=== PATIENT | male | born 1975 | race Caucasian/White ===

== ENCOUNTER 2016-04-20 19:06 | Emergency (ER) | payer OTHER ==
[~2016-04-20] VITALS: Ht 180.3 cm; Wt 90.7 kg
--- NOTE | 2016-04-20 19:24 | ED CARDIAC/CP/PALPITATIONS ---
History of Present Illness General Chief Complaint: General Adult Stated Complaint: PT WAS SENT BY WALK IN FOR CHEST PAIN Source: patient, family Exam Limitations: no limitations Vital Signs & Intake/Output Vital Signs & Intake/Output Vital Signs Date Time Temp Pulse Resp B/P Pulse O2 O2 Flow FiO2 Ox Delivery Rate 04/20 2114 98.8 50 21 103/58 94 Room Air 04/20 1920 98.3 67 20 117/78 95 Room Air Allergies Coded Allergies: NO KNOWN ALLERGIES (04/20/16) Reconcile Medications Indomethacin 25 MG CAPSULE 1 CAP PO TID PRN PAIN with food Triage Nurses Notes Reviewed? yes Onset: Abrupt Duration: SINCE 5 AM Timing: single episode today Quality/Severity: sharp Modifying Factors: Worsens With: breathing, movement. HPI: 40 year old male who presents to the ER with chief complaint of left sided chest pain who presents to the ER with left sided chest pain which started at 5 am this morning, waking him up from sleep. He denies any shortness of breath. Pain is in the left chest worse with certain movements and deep inspiration. He states he took 2 doses of ibuprofen today with no relief. This evening he went to an urgent care center and they sent in for further evaluation. He has a family history of cardiac disease. His father of an [place] at the age of 56. Past History Travel History Traveled to [place] past 21 day No Medical History Any Pertinent Medical History? see below for history Neurological: NONE EENT: OPTIC NEURITIS Cardiovascular: NONE Respiratory: NONE Gastrointestinal: NONE Hepatic: NONE Renal: NONE Musculoskeletal: NONE Psychiatric: NONE Endocrine: NONE Blood Disorders: NONE Cancer(s): NONE BATCH DUMPER/Reproductive: NONE Surgical History Surgical History: non-contributory Psychosocial History What is your primary language Peruvian Tobacco Use: Current Daily Use Daily Tobacco Use Amount/Type: => 5 Cigarettes daily ETOH Use: occasional use Illicit Drug Use: ON SUBOXONE Family History Comment: FATHER - OF [place] @ 54 BROTHER - DVT Hx Contributory? Yes Review of Systems Review of Systems Constitutional: Denies: chills, fever. EENTM: Reports: no symptoms. Respiratory: Denies: cough, short of breath, sputum production. Cardiovascular: Reports: chest pain. GI: Denies: abdominal pain. Genitourinary: Reports: no symptoms. Musculoskeletal: Reports: no symptoms. Skin: Reports: no symptoms. Neurological/Psychological: Reports: no symptoms. Hematologic/Endocrine: Denies: bruising, bleeding, polyuria, polydipsia. Immunologic/Allergic: Denies: splenectomy. All Other Systems: Reviewed and Negative Physical Exam Physical Exam General Appearance: well developed/nourished, alert, awake, mild distress Head: atraumatic, normal appearance Eyes: Bilateral: normal appearance, PERRL, pale conjunctivae. Ears, Nose, Throat: normal pharynx, normal ENT inspection, hearing grossly normal Neck: normal inspection, supple, full range of motion Respiratory: normal breath sounds, chest non-tender, no respiratory distress Cardiovascular: regular rate/rhythm Peripheral Pulses: 2+ radial (R), 2+ radial (L) Gastrointestinal: normal bowel sounds, soft, non-tender Neurologic/Psych: no motor/sensory deficits, awake, alert, oriented x 3 Skin: intact, normal color, warm/dry Core Measures ACS in differential dx? Yes ASA ordered for poss ACS? 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 04/20 1943 Active LIPID PANEL 04/20 1942 Complete D-DIMER 04/20 1942 Complete TROPONIN LEVEL 04/20 1913 Complete COMPREHENSIVE METABOLIC PANEL 04/20 1913 Complete CBC WITHOUT DIFFERENTIAL 04/20 1913 Complete EKG 04/20 1913 Active Laboratory Tests 04/20/161942: Anion Gap 8, Estimated GFR > 60, BUN/Creatinine Ratio 19.0, Glucose 94, Calcium 9.5, Total Bilirubin 0.8, AST 18, ALT 30, Alkaline Phosphatase 54, Troponin I < 0.01, Total Protein 6.7, Albumin 4.3, Globulin 2.4, Albumin/Globulin Ratio 1.8, Triglycerides 122, Cholesterol 215 H, LDL Cholesterol, Calc 142 H, HDL Cholesterol 49, Cholesterol/HDL Ratio 4, D-Dimer < 200, CBC w Diff NO MAN DIFF REQ, RBC 4.46 L, MCV 93.1, MCH 33.2 H, RDW 12.9, MPV 7.9, Gran % 68.2, Lymphocytes % 18.6 L, Monocytes % 6.6, Eosinophils % 6.2 H, Basophils % 0.4, Absolute Granulocytes 4.8, Absolute Lymphocytes 1.3, Absolute Monocytes 0.5, Absolute Eosinophils 0.4, Absolute Basophils 0, PUBS MCHC 35.7 Diagnostic Imaging: Viewed by Me: Radiology Read. Discussed w/RAD: Radiology Read. CXR Impression: chest x-ray within normal limits from urgent care Initial ED EKG: NSR Departure Departure Time of Disposition: 2130 Disposition: HOME OR SELF CARE Condition: Stable Clinical Impression Primary Impression: Chest pain at rest Referrals: LAUREN LOPEZ PhD,ANTONELLA Combs Additional Instructions: Follow-up with Dr. Hernández in the office. Stop smoking as we advised. Take Indocin as directed. Return to the ER for any changing or worsening symptoms. Departure Forms: Customer Survey General Discharge Information Prescriptions: Current Visit Scripts Indomethacin 1 CAP PO TID PRN PAIN #30 CAP with food Critical Care Note Critical Care Note Critical Care Time: non-applicable
[2016-04-20 20:18] LABS: ABSOLUTE BASOPHIL COUNT 0 /CUMM (0.0-0.2); ABSOLUTE EOSINOPHIL COUNT 0.4 /CUMM (0.0-0.7); ABSOLUTE GRANULOCYTE CT 4.8 /CUMM (1.4-6.5); ABSOLUTE LYMPH COUNT 1.3 /CUMM (1.2-3.4); ABSOLUTE MONOCYTE COUNT 0.5 /CUMM (0.10-0.60); BASOPHIL % 0.4 % (0.0-2.0); EOSINOPHIL % 6.2 % (0-5); GRANULOCYTE % 68.2 % (42.2-75.2); HEMATOCRIT 41.5 % (42-52); MEAN CORPUSCULAR HGB 33.2 PG (27.0-31.0); MEAN CORPUSCULAR HGB CONC 35.7 G/DL (33.0-37.0); MEAN CORPUSCULAR VOLUME 93.1 FL (80.0-94.0); MEAN PLATELET VOLUME 7.9 FL (7.4-10.4); PLATELET COUNT 160 /CUMM (130-400); RBC DISTRIBUTION WIDTH 12.9 % (11.5-14.5); RED BLOOD CELL CT 4.46 /CUMM (4.70-6.10); WHITE BLOOD CELL COUNT 7.1 /CUMM (4.8-10.8)
[2016-04-20 21:15] VITALS: BP 103/58
[2016-04-20] MEDS ORDERED: INDOMETHACIN25 M1 PO (21:32)
== END 2016-04-20 21:56 ==
LOC: ERH 19:06
PROVIDERS: Physician Assistant Medical
DX: R07.9 Chest pain, unspecified (principal)
CPT/HCPCS: 93005; 93010